=== PATIENT | female | born 1970 | race Caucasian/White ===

== ENCOUNTER → 2016-03-12 | Outpatient (CLI) | payer OTHER ==
[~2016-03-12] MED LIST: CYMBALTA60 MG PO; FIORICET WI1 CAPSULE PO; INDOCIN25 MG PO; LORCET 5-325 M1 EACH PO; MEDROL DOSEPAK4 MG PO; MOTRIN800 MG PO; NEURONTIN300 MG PO; OPANA ER15 MG PO; OXYCODONE HCL10 MG PO; PREDNISONE20 MG PO; REGLAN10 MG PO; TESSALON PERLE100 MG PO; TRUVADA1 TABLET PO; VALIUM2 MG PO; XANAX0.25 MG PO; ZOFRAN ODT4 MG PO
== END | disposition home or self-care (01) ==
LOC: NUC 03-05 08:00
DX: M16.11 Unilateral primary osteoarthritis, right hip (principal); Z96.641 Presence of right artificial hip joint; Z88.1 Allergy status to other antibiotic agents; Z88.8 Allergy status to other drugs, medicaments and biological substances; Z91.040 Latex allergy status
CPT/HCPCS: 78315; A9503

== ENCOUNTER 2017-01-23 19:55 | Emergency (ER) | payer OTHER ==
[~2017-01-23] VITALS: Ht 165.1 cm; Wt 87.2 kg
[2017-01-23] MEDS ORDERED: LYRICA200 MG PO (20:27)
[2017-01-23] MEDS ORDERED: LORATADINE10 M3 PO (20:28)
[2017-01-23] MEDS ORDERED: FLEXERIL5 MG PO (22:13)
[2017-01-23] MEDS ORDERED: MOTRIN600 MG PO (22:13)
[2017-01-23 22:39] VITALS: BP 126/73
== END 2017-01-23 22:41 | disposition home or self-care (01) ==
LOC: EME 19:55
DX: S43.401A Unspecified sprain of right shoulder joint, initial encounter (principal); S76.011A Strain of muscle, fascia and tendon of right hip, initial encounter; M54.5 Low back pain; W01.0XXA Fall on same level from slipping, tripping and stumbling without subsequent striking against object, initial encounter; Y92.009 Unspecified place in unspecified non-institutional (private) residence as the place of occurrence of the external cause; Z96.641 Presence of right artificial hip joint; F32.9 Major depressive disorder, single episode, unspecified; F41.9 Anxiety disorder, unspecified; Z85.828 Personal history of other malignant neoplasm of skin; Z88.2 Allergy status to sulfonamides; Z91.040 Latex allergy status; F17.200 Nicotine dependence, unspecified, uncomplicated
CPT/HCPCS: 72100; 73030; 73502; 99281; 99285; J1200; J2270; J2405; J3010